=== PATIENT | female | born 1950 | race Caucasian/White ===

== ENCOUNTER 2024-09-02 11:00 | Emergency (ER) | payer MEDICARE, BC ==
[~2024-09-02] VITALS: Ht 157.5 cm; Wt 78.9 kg
[2024-09-02] MEDS ORDERED: ROSU10TA2 PO (11:13)
[2024-09-02] MEDS ORDERED: FLUO20CA42 PO (11:13)
[2024-09-02] MEDS ORDERED: SPIR25TA6 PO (11:13)
[2024-09-02] MEDS ORDERED: LOSA50TA39 PO (11:13)
[2024-09-02] MEDS ORDERED: LINA145C PO (11:13)
[2024-09-02] MEDS ORDERED: METRONIDAZOLE 500 MG/NS 100ML 100 ML IV ONE (11:34)
[2024-09-02 11:53] LABS: BASOPHILS # (AUTO) 0.2 K/UL (0.0-0.2); BASOPHILS % (AUTO) 1.5 % (0.0-2.0); EOSINOPHILS # (AUTO) 0.3 K/uL (0.0-0.7); EOSINOPHILS % (AUTO) 2.1 % (0.0-7.0); HEMATOCRIT 38.8 % (31.2-41.9); HEMOGLOBIN 13.2 g/dL (10.9-14.3); LYMPHOCYTES # (AUTO) 2.5 K/uL (0.8-4.8); LYMPHOCYTES % (AUTO) 17.7 % (20.5-51.5); MEAN CORPUSCULAR HEMOGLOBIN 29.7 uug (24.7-32.8); MEAN CORPUSCULAR HGB CONC 34 g/dL (32.3-35.6); MEAN CORPUSCULAR VOLUME 87.1 fL (75.5-95.3); MONOCYTES # (AUTO) 1.4 K/uL (0.1-1.30); MONOCYTES % (AUTO) 9.7 % (0.0-11.0); NEUTROPHILS # (AUTO) 9.6 K/uL (1.8-8.9); PLATELET COUNT (AUTO) 327 K/uL (179-408); RED BLOOD CELL COUNT(AUTO) 4.46 MIL/uL (3.63-4.92); RED CELL DISTRIBUTION WIDTH 13.6 % (12.3-17.7); WHITE BLOOD COUNT (AUTO) 13.9 K/uL (3.8-11.8)
[2024-09-02 11:54] LABS: DIFFERENTIAL COMMENT 1
[2024-09-02] MEDS: METRONIDAZOLE 500 MG/NS 100 ML PIGGYBACK IV ONE (12:02)
[2024-09-02] MEDS: IV NORMAL SALINE 1000 ML BAG IV ONE (12:02)
[2024-09-02 12:03] LABS: CALCIUM 9.2 mg/dL (8.5-10.1); CARBON DIOXIDE 25 mmol/L (21-32); CHLORIDE 105 mmol/L (98-107); CREATININE 0.9 mg/dL (0.6-1.3); GLUCOSE 100 mg/dL (74-106); POTASSIUM 4.3 mmol/L (3.5-5.1); SODIUM SERUM 138 mmol/L (136-145); UREA NITROGEN, BLOOD 17 mg/dL (7-18)
[2024-09-02] MEDS ORDERED: ACETAMINOPHEN 500 MG TABLET ONE (12:40)
[2024-09-02] MEDS ORDERED: HYDROCODONE/APAP 10-325 MG TABLET ONE (12:43)
[2024-09-02] MEDS: ACETAMINOPHEN 500 MG TABLET PO ONE (13:07)
[2024-09-02] MEDS: HYDROCODONE/APAP 10-325 MG TABLET PO ONE (13:07)
[2024-09-02] MEDS: CEFTRIAXONE 2 G in IV DEXTROSE 5% 100 ML IV ONE (13:10)
[2024-09-02] MEDS ORDERED: METR500T PO (14:36)
[2024-09-02] MEDS ORDERED: AMOX-430 PO (14:36)
[2024-09-02] MEDS ORDERED: HYDR-3980 PO (14:36)
[2024-09-02] MEDS ORDERED: CHLO473M3 PO (14:38)
[2024-09-02 15:11] VITALS: BP 128/62; O2SAT 93
== END 2024-09-02 15:12 | disposition home or self-care (01) ==
LOC: ER 11:00
DX: K04.7 Periapical abscess without sinus (principal); M54.2 Cervicalgia; E78.00 Pure hypercholesterolemia, unspecified; K58.9 Irritable bowel syndrome, unspecified; Z79.899 Other long term (current) drug therapy; Z88.1 Allergy status to other antibiotic agents; Z88.6 Allergy status to analgesic agent
CPT/HCPCS: 99284; 96365; 96367; 80048; 85025; 84145; 86140; 36415; 70360; J0696; J3490; J7040; A4606; A4663; A9150